=== PATIENT | male | born 2000 | race Caucasian/White ===

== ENCOUNTER 2024-07-27 10:57 | Emergency (ER) | payer MEDICAID, OTHER ==
[2024-07-27] MEDS ORDERED: Naloxone 0.4 MG/ML SDV IVPUSH PRN (11:28)
[2024-07-27] MEDS: fentaNYL 100 MCG/2 ML SDV IVPUSH ONE (11:39)
[2024-07-27] MEDS: Propofol 200 MG/20 ML SDV IVPUSH ONE (12:28)
[2024-07-27] MEDS: Sodium Chloride 0.9% 10 ML Syringe FLUSH PRN (12:29)
== END 2024-07-27 14:07 | disposition home or self-care (01) ==
LOC: JD.ED 10:57
DX: S43.015A Anterior dislocation of left humerus, initial encounter (principal); M25.532 Pain in left wrist; W19.XXXA Unspecified fall, initial encounter; Y99.0 Civilian activity done for income or pay; Y92.89 Other specified places as the place of occurrence of the external cause
CPT/HCPCS: 23650; 73030; 73110; 96374; 99152; 99283; J2704; J3010; 99151; 99284